=== PATIENT | male | born 1985 | race Caucasian/White ===

== ENCOUNTER 2018-12-17 16:47 | Emergency (ER) | payer SELFPAY ==
[2018-12-17] MEDS ORDERED: Bupivacaine 0.5% 30 ML SDV INFILT ONE (17:20)
--- NOTE | 2018-12-17 17:21 | EDM.PDOC ---
ED HPI GENERAL MEDICAL PROBLEM - General Stated Complaint: LEFT HAND/FINGERS LACERATIONS Time Seen by Provider: 12/17/18 17:20 Source of Information: Reports: Patient History Limitations: Reports: No Limitations - History of Present Illness INITIAL COMMENTS - FREE TEXT/NARRATIVE: 33-year-old male sliced his left hand with a piece of tin, sustaining lacerations to the base of the middle, ring, and small finger. He is unable to move the ring finger. Onset: Sudden Duration: Hour(s): (Within the last hour) Location: Reports: Upper Extremity, Left Left Hand Pain Score (Numeric/FACES): 5 - Related Data Allergies Allergy/AdvReac Type Severity Reaction Status Date / Time No Known Allergies Allergy Verified 12/17/18 17:25 Home Meds: Home Meds NK [No Known Home Meds] 12/17/18 [History] Review of Systems - Review of Systems Review Of Systems: See Below Constitutional: Denies: Fever Respiratory: Reports: No Symptoms Cardiovascular: Reports: No Symptoms GI/Abdominal: Reports: No Symptoms Neurological: Reports: Paresthesia (Distal ring finger is somewhat numb) ED EXAM, GENERAL - Physical Exam Exam: See Below Exam Limited By: No Limitations General Appearance: Alert, No Apparent Distress Respiratory/Chest: No Respiratory Distress Extremities: Other (Remainder of exam is limited to the left hand. Patient has a laceration over the middle phalange palmar side of the small finger which is 2 cm. There is a very deep laceration at the base of the ring finger palmar side 2.5 cm, and a 2.5 cm laceration at the base of the middle finger. The ring finger has no flexion capability indicating a flexor tendon laceration.) Course - Vital Signs Last Recorded V/S: Last Vital Signs Temp 98.9 F 12/17/18 17:22 Pulse 63 12/17/18 17:22 Resp 12 12/17/18 17:22 BP 121/86 12/17/18 17:22 Pulse Ox 96 12/17/18 17:22 - Orders/Labs/Meds Meds: Medications Discontinued Medications Generic Name Dose Route Start Last Admin Trade Name Freq PRN Reason Stop Dose Admin Bacitracin Confirm 12/17/18 18:34 12/17/18 18:43 Bacitracin Oint 1 Gm Administered 12/17/18 18:35 Not Given Dose 2 dose .ROUTE .STK-MED ONE Bacitracin 2 dose 12/17/18 18:40 12/17/18 18:42 Bacitracin Oint 1 Gm TOP 12/17/18 18:41 2 dose ONETIME ONE Administration Bupivacaine HCl 30 ml 12/17/18 17:20 12/17/18 17:25 Marcaine 0.5% INFILT 12/17/18 17:21 30 ml ONETIME ONE Administration - Re-Assessments/Exams Free Text/Narrative Re-Assessment/Exam: 12/17/18 18:34 Marcaine digital blocks were applied to the lacerations. The wounds were flushed thoroughly with saline. I discussed the condition with surgery in [place], he agreed to see him tomorrow. Sutures were applied to all 3 lacerations, the ring finger laceration was loosely closed as I expect this to be reopened. Topical bacitracin and dressings were applied to the hand in a flexed position. Patient will be given cephalexin 500 3 times a day and will recheck in [place] tomorrow with Dr. Calero. Departure - Departure Time of Disposition: 19:00 Disposition: Home, Self-Care 01 Clinical Impression: Finger laceration involving tendon Qualifiers: Encounter type: initial encounter Qualified Code(s): S61.219A - Laceration without foreign body of unspecified finger without damage to nail, initial encounter - Discharge Information Instructions: Laceration Care, Adult Referrals: PCP,None [Primary Care Provider] - Forms: ED Department Discharge Care Plan Goals: Keep dressing on hand until recheck tomorrow. Call [phone] to schedule an appointment with Dr. Calero. His clinic is in [place]. You can call at 8:30 or 9 AM. Take antibiotic as prescribed, ibuprofen for pain and add stronger pain medication if needed.
[2018-12-17] MEDS ORDERED: Bacitracin Oint 1 GM U/D Packet ONE (18:34)
[2018-12-17] MEDS ORDERED: Bacitracin Oint 1 GM U/D Packet TOP ONE (18:40)
== END 2018-12-17 19:00 | disposition home or self-care (01) ==
LOC: JP.ED 16:47
DX: S66.127A Laceration of flexor muscle, fascia and tendon of left little finger at wrist and hand level, initial encounter (principal); S66.125A Laceration of flexor muscle, fascia and tendon of left ring finger at wrist and hand level, initial encounter; S66.123A Laceration of flexor muscle, fascia and tendon of left middle finger at wrist and hand level, initial encounter; W26.8XXA Contact with other sharp object(s), not elsewhere classified, initial encounter
CPT/HCPCS: 12002; 99283; J3490